=== PATIENT | female | born 1985 | race African-American/Black ===

== ENCOUNTER 2019-08-26 04:17 | Emergency (ER) | payer SELFPAY ==
[2019-08-26] MEDS ORDERED: Lidocaine Viscous Sol 2% 15 ml UD Cup ONE (04:24)
== END 2019-08-26 04:35 | disposition home or self-care (01) ==
LOC: ERS 04:17
DX: T16.2XXA Foreign body in left ear, initial encounter (principal); J45.909 Unspecified asthma, uncomplicated; Z79.51 Long term (current) use of inhaled steroids
CPT/HCPCS: 69200

== ENCOUNTER 2019-12-13 22:59 | Emergency (ER) | payer SELFPAY ==
[2019-12-13 23:24] LABS: Bacteria/HPF None Seen HPF (None Seen); Bilirubin Negative (Negative); Blood, Urine 2+ (Negative); Clarity Clear (Clear); Glucose, Urine (Dipstick) Normal (Negative); Leukocyte 25 Leu/uL (Negative); Nitrite Negative (Negative); Protein, Urine (Dipstick) Negative (Neg-Trace); RBC/HPF Greater than 50 HPF (0-3); Squamous Epithelial 0-3 HPF (0-3); Urobilinogen Normal mg/dL (Less than 2)
[2019-12-13 23:25] LABS: Pregnancy Test - Urine (BHCG) Negative (Negative); Pregu Control Background? CLEAR/WHITE (CLR/WHITE); Pregu Control Bar Appear? YES (CONTROL BAR); Specific Gravity 1.012 (1.002-1.036)
== END 2019-12-14 00:19 | disposition home or self-care (01) ==
LOC: ERS 22:59
DX: R10.30 Lower abdominal pain, unspecified (principal); J45.909 Unspecified asthma, uncomplicated; Z79.51 Long term (current) use of inhaled steroids
CPT/HCPCS: 81003; 81015; 81025; 87077; 87086; 99284

== ENCOUNTER 2020-01-04 02:21 | Emergency (ER) | payer BC, SELFPAY | END 2020-01-04 03:20 | disposition home or self-care (01) | LOC: ERS 02:21 | DX: M77.9 Enthesopathy, unspecified (principal); J45.909 Unspecified asthma, uncomplicated | CPT/HCPCS: 99283 ==

== ENCOUNTER 2020-03-03 22:37 | Emergency (ER) | payer BC | END 2020-03-03 23:27 | disposition home or self-care (01) | LOC: ERS 22:37 | DX: G56.01 Carpal tunnel syndrome, right upper limb (principal); J45.909 Unspecified asthma, uncomplicated | CPT/HCPCS: 99283 ==

== ENCOUNTER 2020-03-13 23:20 | Emergency (ER) | payer OTHER, BC ==
--- NOTE | 2020-03-14 12:21 | RAD ---
RIGHT MIDDLE FINGER 3 VIEWS: HISTORY: Injury, right middle finger pain. FINDINGS/IMPRESSION: No acute fracture or dislocation is identified. POS: [facility]
== END 2020-03-14 01:34 | disposition home or self-care (01) ==
LOC: ERS 23:20
DX: S60.031A Contusion of right middle finger without damage to nail, initial encounter (principal); J45.909 Unspecified asthma, uncomplicated; W31.9XXA Contact with unspecified machinery, initial encounter